=== PATIENT | female | born 1975 | race Caucasian/White ===

== ENCOUNTER → 2019-09-07 | Outpatient (CLI) | payer OTHER, MEDICARE ==
[~2019-09-07] MED LIST: ACTIGALL300 MG PO; IRON PO; PRENATAL + DHA1 EACH PO
== END ==
LOC: M.LAB 09:03
PROVIDERS: ATTEND Internal Medicine Gastroenterology
DX: Z01.812 Encounter for preprocedural laboratory examination (principal); R10.13 Epigastric pain; R19.7 Diarrhea, unspecified